=== PATIENT | female | born 1965 | race Caucasian/White ===

== ENCOUNTER 2020-07-27 13:58 | Emergency (ER) | payer SELFPAY ==
[2020-07-27 13:59] VITALS: BP 152/81; PULSE 88; RESP 16; TEMP 36.7; O2SAT 99; BMI 22.8
--- NOTE | 2020-07-27 14:21 | RAD_ITS ---
STUDY: X-RAY - LEFT FOOT CLINICAL: Female, 54 years old. Blunt trauma to the foot TECHNIQUE: 3 view(s) of the foot. COMPARISON: None. FINDINGS: There is fracture of the first digit distal phalanx. Remainder of the bones are intact and all joints are located. Soft tissues are unremarkable. RAD/Foot min 3 Views IMPRESSION: First digit distal phalangeal fracture. Electronically Signed: Emeterio Das MD at 15:13 EDT Tel , Service support ,
--- NOTE | 2020-07-27 14:34 | RAD_ITS ---
STUDY: X-RAY - LEFT TIBIA AND FIBULA REASON FOR EXAM: Female, 54 years old. injury TECHNIQUE: 2 view(s) of the tibia and fibula were obtained. COMPARISON: None. FINDINGS: Normal visualized tibia. Normal visualized fibula. The soft tissue structures are unremarkable. RAD/Tibia & Fibula 2 Views IMPRESSION: Normal x-ray examination of the tibia and fibula. Electronically Signed: Emeterio Das MD at 15:30 EDT Tel , Service support ,
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
[2020-07-27] MEDS: Acetaminophen/Codeine #3 Tablet 2 TABLET PO (14:42)
[2020-07-27 15:36] VITALS: BP 124/69; PULSE 72; RESP 15; O2SAT 97
== END 2020-07-27 15:37 | disposition home or self-care (01) ==
LOC: ED 15:21
PROVIDERS: Emergency Provider Emergency Medicine; PCP Family Medicine
DX: S92.422A Displaced fracture of distal phalanx of left great toe, initial encounter for closed fracture (principal); S80.12XA Contusion of left lower leg, initial encounter; S90.415A Abrasion, left lesser toe(s), initial encounter; W22.8XXA Striking against or struck by other objects, initial encounter; Y93.9 Activity, unspecified; Y92.9 Unspecified place or not applicable; F17.200 Nicotine dependence, unspecified, uncomplicated; Z89.431 Acquired absence of right foot
CPT/HCPCS: 73590; 73630; 99283